=== PATIENT | female | born 1980 | race Caucasian/White ===

== ENCOUNTER 2016-08-31 19:13 | Emergency (ER) | payer BC ==
--- NOTE | ~2016-08-31 | EKG ---
PATIENT: SALLY FOOTE UNIT #: [id number] Ventricular Rate: 82 BPM Atrial Rate: 82 BPM P-R Interval: 132 ms QRS Duration: 74 ms Q-T Interval: 386 ms QTC Calculation(Bezet): 450 ms P Alger: -13 degrees Calculated R Alger: 75 degrees Calculated T Alger: 17 degrees Diagnosis Line: Normal sinus rhythm Cannot rule out Diagnosis Line: Septal infarct , age undetermined Diagnosis Line: Abnormal ECG Diagnosis Line: No previous ECGs available Diagnosis Line: Confirmed by RADHA HUTCHINSON MD ([id number]) on 09/01/2016 Diagnosis Line: 8:07:13 PM INTERPRETING MD: JASPER FANG
--- NOTE | ~2016-08-31 | CR72 ---
[facility] A Service of [facility] & [facility] RADIOLOGY TEXT RESULTS PATIENT: SALLY FOOTE LOCATION: [facility] : [birth year] UNIT #: [id number] AGE: [address]: Truman Valderrama MD SEX: F ORDER DR: [id number] [facility] [address] [place], [place] [address] [id number] E MR#: [id number] Acc #: [id number] NAME: SALLY FOTOE : 1980 SEX: F STUDY DATE/TIME: 08/31/2016 21:41 UNIT: [facility] ROOM: STUDY DESCRIPTION: CR Chest Single View Portable Attending Physician: Truman Valderrama M.D. Ordering Physician: Truman Valderrama M.D. Primary Care Physician: Primary Care Physician No MEDICAL IMAGING REPORT This report is preliminary unless electronic signature is present EXAM Portable chest, 08/31/2016 HISTORY 36-year-old female with chest pain and shortness of air for 3 days. Comparison chest 04/13/2016 FINDINGS Frontal chest demonstrates clear lungs. No pleural effusion or pneumothorax. Heart size and mediastinum are normal. Pulmonary vasculature normal. IMPRESSION No acute cardiopulmonary findings. Dictated by... Pradip Tuore M.D. THIS IS AN ELECTRONICALLY VERIFIED REPORT Pradip Toure M.D. at 09/04/2016 7:50 AM Micah TD: 09/01/2016 02:30 JOB #: [id number] MEDICAL IMAGING REPORT Page 1 of 1 COPY
[~2016-08-31 19:13] MED LIST: IBUPROFEN800 MG PO; ZYRTEC10 M2 PO
[2016-08-31 21:41] LABS: BASOPHIL% 0.1 % (0-2.5); EOSINOPHIL# 0.1 X10e3 (0-0.7); EOSINOPHIL% 0.8 % (0.0-7.0); HEMATOCRIT 32.9 % (35.0-45.0); HEMOGLOBIN 10.1 gm/dL (12.0-16.0); LYMPHOCYTE# 1.2 X10e3 (1.0-3.5); LYMPHOCYTE% 9.1 % (17.0-45.0); MEAN CELL VOLUME 71.6 FL (83-96); MEAN CORPUSCULAR HEMOGLOBIN 22.1 PG (28-34); MEAN CORPUSCULAR HGB CONC 30.8 g/dL (30-36); MEAN PLATELET VOLUME 7.2 FL (6.5-11.5); MONOCYTE# 0.4 X10e3 (0-1.0); MONOCYTE% 2.9 % (3.0-12.0); NEUTROPHIL# 11.1 X10e3 (1.5-7.1); NEUTROPHIL% 87.1 % (40-75); PLATELET COUNT 263 X10e3 (140-420); RED CELL DISTRIBUTION WIDTH 16.2 % (11.0-15.5); WHITE BLOOD COUNT 12.8 X10e3 (4.0-10.5)
[2016-08-31 21:43] LABS: DIFF IND NO
[2016-08-31 21:49] LABS: POC - CKMB <1.0 ng/mL (0.0-7.9); POC - TROPONIN <0.05 ng/mL (<=0.05)
[2016-08-31 22:07] LABS: ALBUMIN SERUM 4.6 g/dL (3.5-5.0); BILIRUBIN, DIRECT 0.1 mg/dL (0.0-0.2); BILIRUBIN,INDIRECT 0.2 mg/dL (0.0-0.9); BILIRUBIN,TOTAL 0.3 mg/dL (0.2-2.0); BUN/CREATININE RATIO 17.14; CALCIUM SERUM 8.7 mg/dL (8.4-10.2); CREATININE SERUM 0.7 mg/dL (0.6-1.4); GLOM FILT RATE Estimated 111.5 mL/min (>60); POTASSIUM 3.2 mmol/L (3.5-5.1); PROTEIN TOTAL SERUM 7.8 g/dL (6.0-8.3)
[2016-08-31 22:11] LABS: PARTIAL THROMBOPLASTIN TIME 27.5 SECONDS (23.5-31.3)
[2016-08-31 23:51] LABS: POC - CKMB <1.0 ng/mL (0.0-7.9); POC - TROPONIN <0.05 ng/mL (<=0.05)
== END 2016-09-01 00:27 | disposition home or self-care (01) ==
LOC: CED 19:13
PROVIDERS: Emergency Medicine
DX: R07.9 Chest pain, unspecified (principal); Z79.899 Other long term (current) drug therapy; Z88.0 Allergy status to penicillin
CPT/HCPCS: 36415; 71010; 80048; 80076; 82553; 84484; 84703; 85025; 85379; 85610; 85730; 93005; 96360; 99284

== ENCOUNTER → 2016-09-19 | Outpatient (CLI) | payer BC ==
--- NOTE | ~2016-09-19 | ST ---
Unit #: [id number] #: [id number] Patient: SALLY FOOTE [id number] [address] [address] [id number] O MR#: [id number] NAME: SALLY FOOTE : 1980 SEX: F STUDY DATE/TIME: 09/19/2016 UNIT: [facility] ROOM: STUDY DESCRIPTION: Combined EKG and nuclear Attending Physician: Forest Archibald M.D. Referring Physician: Forest Archibald M.D. Primary Care Physician: Forest Archibald M.D. CARDIOLOGY REPORT EXAM Combined EKG and nuclear part of test. DESCRIPTION Patient's baseline heart rate is 72 BPM. Blood pressure is 108/70. Patient received Lexiscan infusion at protocol. Peak infusion heart rate 137 BPM. Blood pressure 112/68. During Lexiscan infusion recovery there were no ST-T changes. Underlying rhythm is sinus. Normal EKG. Patient also received 10.80 mCi of Cardiolite at rest and 32.7 mCi of Cardiolite during stress. Both sets of images were compared. Patient shows fairly uniform uptake of radiotracer. No defect was noted. Patient also has gated SPECT scan done, which showed normal LV size and function. No wall motion abnormality detected. Ejection fraction 82%. INTERPRETATION OF TEST 1. EKG part of the test negative for Lexiscan induced ischemia. 2. Nuclear part of the test negative for myocardial ischemia. 3. Gated SPECT scan shows normal LV size and function. Dictated by... Lemuel Xie/jason TD: 09/19/2016 13:19 JOB #: [id number] CARDIOLOGY REPORT Page 1 of 1 X Rufino Herrera MD CARDIOLOGY REPORT
== END | disposition home or self-care (01) ==
LOC: CNUC 08:15
DX: R07.89 Other chest pain (principal)
CPT/HCPCS: 78452; 93017; A9500; J2785